=== PATIENT | female | born 1985 | race Caucasian/White ===

== ENCOUNTER 2016-11-15 10:05 | Emergency (ER) | payer OTHER ==
[~2016-11-15 10:05] MED LIST: FLEXERIL10 MG PO; NO MEDICATIONS; VOLTAREN75 MG PO
== END 2016-11-15 10:32 | disposition home or self-care (01) ==
LOC: CED 10:05
DX: O9A.211 Injury, poisoning and certain other consequences of external causes complicating pregnancy, first trimester (principal); S30.1XXA Contusion of abdominal wall, initial encounter; M54.9 Dorsalgia, unspecified; O99.341 Other mental disorders complicating pregnancy, first trimester; F41.9 Anxiety disorder, unspecified; O99.331 Smoking (tobacco) complicating pregnancy, first trimester; F17.210 Nicotine dependence, cigarettes, uncomplicated; V43.52XA Car driver injured in collision with other type car in traffic accident, initial encounter; Z3A.13 13 weeks gestation of pregnancy
CPT/HCPCS: 99284